=== PATIENT | male | born 1970 | race Caucasian/White ===

== ENCOUNTER → 2024-09-20 | Outpatient (CLI) | payer BC ==
--- NOTE | 2024-09-21 13:00 | MR ---
EXAMINATION TYPE: MR shoulder LT wo con DATE OF EXAM: 09/20/2024 COMPARISON: None HISTORY: Left shoulder pain x1 year, Pt states bulge top of left shoulder TECHNIQUE: Multiplanar, multisequence imaging of the left shoulder is performed without contrast. FINDINGS: SUPRASPINATUS: Intact. INFRASPINATUS: Intact. SUBSCAPULARIS: Intact. TERES MINOR: Intact. BICEPS: Intact. Normal signal. Normal anchor in the supraglenoid tubercle. Extra-articular portion is appropriately positioned within the bicipital groove. GLENOHUMERAL JOINT: Normal alignment and joint space. Normal cartilage. No effusion. ACROMIOCLAVICULAR JOINT: Capsular hypertrophy, degenerative subchondral cystic changes, and small dov nt effusion. LABRUM: Normal, given the limitations of a non-arthrographic exam. SUBDELTOID BURSA: Normal. No increased fluid. MUSCLES: Fat signal structure within the posterior aspect of the deltoid measuring 1.7 x 2.3 x 3.9 cm , most consistent with an intramuscular lipoma. BONE MARROW: Normal. OTHER: No additional significant abnormality is appreciated. IMPRESSION: 1. Intramuscular lipoma within the posterior head of the deltoid. 2. Advanced AC joint osteoarthrosis. 3. Intact rotator cuff. [facility], Workstation: [id number], 09/21/2024 12:57 PM
== END | disposition home or self-care (01) ==
LOC: RADMRIMAIN 18:54
PROVIDERS: ATTEND Orthopaedic Surgery
DX: M19.012 Primary osteoarthritis, left shoulder (principal); D17.0 Benign lipomatous neoplasm of skin and subcutaneous tissue of head, face and neck

== ENCOUNTER → 2024-11-01 | Outpatient (CLI) | payer BC ==
[2024-11-01 19:15] LABS: Anion Gap 12.1 mmol/L (4.00-12.00); Carbon Dioxide 26.9 mmol/L (21.6-31.8); Potassium 4.1 mmol/L (3.5-5.5)
[2024-11-01 20:04] LABS: Basophils # (A) 0.08 X 10*3/uL (0.00-0.10); Basophils % (A) 1.3 %; Eosinophils # (A) 0.06 X 10*3/uL (0.04-0.35); HCT 45.9 % (39.6-50.0); HGB 16.2 g/dL (13.0-17.0); Lymphocytes # (A) 1.03 X 10*3/uL (0.90-5.00); Lymphocytes % (A) 17.3 %; MCH 33.4 pg (27.0-32.0); MCHC 35.3 g/dL (32.0-37.0); MCV 94.6 FL (80.0-97.0); Mean Platelet Volume 10.1 FL (9.5-12.2); Monocytes # (A) 0.75 X 10*3/uL (0.20-1.00); Monocytes % (A) 12.6 %; NRBC Per 100 WBC 0 X 10*3/uL (0.00-0.01); Neutrophils % (A) 67.5 %; Platelet Count 216 X 10*3/uL (140-440); RBC 4.85 X 10*6/uL (4.40-5.60); RDW 11.9 % (11.5-14.5); WBC 5.94 X 10*3/uL (4.50-10.00)
== END | disposition home or self-care (01) ==
LOC: LABPAT 12:44
PROVIDERS: ATTEND Orthopaedic Surgery
DX: Z01.818 Encounter for other preprocedural examination (principal); D70.0 Congenital agranulocytosis; I22.0 Subsequent ST elevation (STEMI) myocardial infarction of anterior wall; Z53.9 Procedure and treatment not carried out, unspecified reason
CPT/HCPCS: 80051; 85025

== ENCOUNTER 2024-11-16 08:18 | Day surgery (SDC) | payer BC ==
--- NOTE | 2024-11-16 03:26 | HP ---
HISTORY AND PHYSICAL Surgery is scheduled for 11/16/2024. HISTORY OF PRESENT ILLNESS: Julio Boudreaux is a 54-year-old gentleman seen with a symptomatic soft tissue mass of the left shoulder consistent with lipoma. We discussed options. He elected to proceed with surgical excision of the symptomatic lipoma. Consent was obtained. PAST MEDICAL HISTORY: Hypertension, hyperlipidemia. SURGICAL HISTORY: Ankle surgery. DAILY MEDICATIONS: 1. Amiodarone. 2. Benazepril. 3. Carvedilol. ALLERGIES: None. SOCIAL HISTORY: Denies tobacco use. PHYSICAL EXAMINATION: Evaluation left shoulder, there is an intramuscular lipoma along the posterior aspect of the deltoid, measuring 3 x 3 cm, raised about 2 cm, nontender to palpation. No evidence for any infective process. He has good range of motion of the shoulder with no pain. His distal neurovascular exam is intact. IMAGING: Left shoulder radiographs revealed a type 2 acromion. MRI left shoulder revealed an intramuscular lipoma. IMPRESSION: 1. Left shoulder intramuscular lipoma. 2. Hypertension. 3. Hyperlipidemia. PLAN: Excision of left shoulder intramuscular lipoma. MMODL / IJN: [id number] /
[~2024-11-16 08:18] MED LIST: HYDROmorphone 0.5 MG/0.5 ML SYRINGE IVP PRN; LIDOCAINE 1% (10MG/ML) FOR IV START INTRADERMA PRN
[2024-11-16] MEDS: LACTATED RINGERS 1,000 ML IV SCH (08:56)
[2024-11-16] MEDS: ONDANSETRON 4 MG/2 ML VIAL IVP ONE (08:56)
[2024-11-16] MEDS: DEXAMETHASONE SOD PHOSPHATE 4 MG/ML 1 ML VIAL IVP STA (08:57)
[2024-11-16] MEDS: IV FLUID CONTINUATION 1,000 ML IV ONE (09:00)
[2024-11-16] MEDS ORDERED: ePHEDrine 50 MG/ML 1 ML VIAL ONE (09:45)
[2024-11-16] MEDS ORDERED: LIDOCAINE 1% INJ 10MG/ML (20 ML MDV) ONE (09:45)
[2024-11-16] MEDS ORDERED: fentaNYL (PF) 50 MCG/ML 2 ML AMP ONE (09:45)
[2024-11-16] MEDS ORDERED: PHENYLEPHRINE-0.9% NACL SYG 1,000 MCG/10 ML SYRINGE ONE (09:45)
[2024-11-16] MEDS ORDERED: MIDAZOLAM 2 MG/2 ML VIAL ONE (09:45)
[2024-11-16] MEDS ORDERED: ROCURONIUM 10 MG/ML (5 ML VIAL) IV ONE (09:45)
[2024-11-16] MEDS ORDERED: WATER FOR INJECTION, STERILE 10 ML VIAL IV ONE (09:45)
[2024-11-16] MEDS ORDERED: SUCCINYLCHOLINE CHLORIDE 200 MG/10 ML VIAL IV ONE (09:45)
[2024-11-16] MEDS ORDERED: PROPOFOL 10 MG/ML 20 ML VIAL IV ONE (09:45)
[2024-11-16] MEDS: BUPIVACAINE (PF) 0.25% 30 ML VIAL SQ ONE ×3 (10:12→10:27)
[2024-11-16] MEDS: LACTATED RINGERS 1,000 ML IV ONE (10:27)
--- NOTE | 2024-11-16 10:38 | P.OP ---
Date of Procedure: 11/16/24 Preoperative Diagnosis: Left shoulder symptomatic lipoma Postoperative Diagnosis: Left shoulder symptomatic lipoma measuring 4.5 cm x 3 cm x 3 cm Procedure(s) Performed: Excision symptomatic lipoma left shoulder measuring 4.5 cm x 3 cm x 3 cm Anesthesia: ANALI, local Surgeon: Cuauhtemoc Alcaraz News Reporter #1: Teddy Bates Estimated Blood Loss (ml): 5 Pathology: none sent Condition: stable Disposition: PACU Indications for Procedure: 54-year-old gentleman seen with a symptomatic soft tissue mass consistent with lipoma left shoulder. After having treatment options discussed, he elected to proceed with excision of the symptomatic lipoma. Consent was obtained. Operative Findings: See description of procedure Description of Procedure: Patient was taken to the operative suite. He underwent a general anesthetic by the department of anesthesia. He received preoperative IV antibiotics. He was now placed in the lateral recumbent position with appropriate padding. Left shoulder was placed in longitudinal traction utilizing 10 pounds. Left shoulder was prepped and draped in the normal sterile fashion. We now made an incision measuring about 5 cm longitudinally in the area of the soft tissue mass/lipoma. I dissected down to the subcutaneous soft tissues to the deltoid. I identified the soft tissue mass by splitting the deltoid fibers as this was intramuscular. I now carefully dissected around the lipoma. I now carefully excise the lipoma without difficulty. And measured approximately 4.5 cm x 3 cm x 3 cm. I now explored the wound and did not see evidence for any residual abnormal or fatty tissue. The wound was irrigated copiously. The subcutaneous soft tissues were repaired with 2-0 Vicryl. The skin was approximate the running subcuticular closure augmented with skin glue. The area was infiltrated with 10 cc quarter percent plain Marcaine to afford postoperative analgesia. Sterile dressings were applied. The patient was awakened, transferred to recovery in stable condition. Howard AG assisted in all aspects of this procedure.
[2024-11-16 10:47] VITALS: TEMP 97
[2024-11-16 11:20] VITALS: PULSE 59
[2024-11-16 11:36] VITALS: BP 114/69; RESP 14
== END 2024-11-16 11:50 | disposition home or self-care (01) ==
LOC: OR 08:18
PROVIDERS: ATTEND Orthopaedic Surgery
DX: D17.22 Benign lipomatous neoplasm of skin and subcutaneous tissue of left arm (principal); E78.5 Hyperlipidemia, unspecified; I10 Essential (primary) hypertension; F17.200 Nicotine dependence, unspecified, uncomplicated; F10.90 Alcohol use, unspecified, uncomplicated; Z79.899 Other long term (current) drug therapy
CPT/HCPCS: 23071; J2250; J0330; J1100; J0690; J2405; J2003; J3010; J2704; J2371; J0665

== ENCOUNTER → 2024-11-19 | Outpatient (CLI) | payer BC ==
--- NOTE | 2024-11-21 07:56 | MR ---
EXAMINATION TYPE: MR Prostate wo/w con DATE OF EXAM: 11/19/2024 11:01 AM COMPARISON: None. CLINICAL INDICATION: Male, 54 years old with history of R97.20 Elevated PSA;Elevated PSA, abnormal US TECHNIQUE: Multi-planar, multi-sequence imaging of the pelvis is performed prior to and following the uncomplicated administration of bolus intravenous gadolinium. IV Contrast: 10.5 mL Gadobutrol Interpretive Criteria: PI-RADS v2.1 SERUM PSA: 11/2023=3.42, 08/18=7.5 SURGICAL PATHOLOGY: No data available. FINDINGS: Prostatic dimensions: 5.0 x 5.4 x 4.1 cm. Ellipsoid Volume:57.96 (PSA density=0.13 ng/mL/mL) CENTRAL GLAND (Central and Transition Zones/CZ+TZ): Multiple bilateral, heterogenous appearing hypertrophic stromal nodules, without suspicious lesion. M edian lobe hypertrophy with protrusion into the base of the bladder. (PI-RADS 2) PERIPHERAL ZONE (PZ): No evidence of masslike abnormality, or localized perfusional hypervascularity, to further suggest a focus of clinically significant prostate cancer. (PI-RADS 2) SEMINAL VESICLES (SV): Symmetric and unremarkable. PERIPROSTATIC TISSUES: Unremarkable. LYMPH NODES: No enlarged pelvic lymph node. REMAINING PELVIS: Bladder wall is within normal limits given distention. No abnormal free or organized intrapelvic fluid collection. No pathologic bowel dilation or mural thickening. Colonic diverticula are present. No hernia visualized OSSEOUS STRUCTURES: No suspicious osseous abnormality. IMPRESSION: No ultrasound available for comparison. 1. No specific features for high-risk prostate cancer. Maximum PI-RADS score: 2. 2. Moderate BPH, estimated gland volume 57.96 mL. 3. No suspicious osseous lesion. No lymphadenopathy. No evidence of prostate adenocarcinoma involving the periprostatic tissues. [facility], , 11/21/2024 7:54 AM
== END | disposition home or self-care (01) ==
LOC: RADMRIMAIN 10:02
PROVIDERS: ATTEND Urology
DX: N40.0 Benign prostatic hyperplasia without lower urinary tract symptoms (principal); R97.20 Elevated prostate specific antigen [PSA]
CPT/HCPCS: 72197; A9585